=== PATIENT | male | born 1965 | race Hispanic/Latino ===

== ENCOUNTER → 2023-04-04 | Outpatient (CLI) | payer OTHER ==
[~2023-04-04] MED LIST: ASCO500T10 PO; CEPH500B PO; HYDR-4060 PO; HYDR12.54 PO; IBUP-2070 PO; LISI10TA24 PO
== END | disposition home or self-care (01) ==
LOC: RAH 13:33
PROVIDERS: ATTEND Chiropractor
DX: I25.9 Chronic ischemic heart disease, unspecified (principal); E66.9 Obesity, unspecified
CPT/HCPCS: 93306

== ENCOUNTER → 2023-10-27 | Outpatient (CLI) | payer OTHER | END | disposition home or self-care (01) | LOC: RAH 15:32 | PROVIDERS: ATTEND Internal Medicine Cardiovascular Disease | DX: Z13.6 Encounter for screening for cardiovascular disorders (principal); E78.2 Mixed hyperlipidemia | CPT/HCPCS: 75571 ==